=== PATIENT | female | born 1955 | race Caucasian/White ===

== ENCOUNTER → 2017-01-19 | Outpatient (CLI) | payer BC ==
[~2017-01-19] MED LIST: GLC/500 PO; IBUP-1050 PO; LORA-741 PO
--- NOTE | 2017-01-19 13:44 | DIAGNOSTIC IMAGING REPORT ---
R SHOULDER MIN 2 VIEWS CLINICAL HISTORY: 61 years-old Female presenting with RIGHT SHOULDER PAIN. TECHNIQUE: Internal rotation, transscapular Y, and axillary views of the right shoulder were obtained. COMPARISON: None. FINDINGS: Glenohumeral and acromioclavicular joints congruent. No acute fracture or subluxation. Degenerative changes of the glenohumeral and acromioclavicular joints noted. Regional soft tissues within normal limits. Visualized portion of the right hemithorax normal. IMPRESSION: Degenerative changes of the acromioclavicular and glenohumeral joints. No acute osseous injury. Electronically signed by: Freddie Simental M.D. 01/19/2017 1:42 PM Dictated Date/Time: 01/19/2017 1:41 PM
== END | disposition home or self-care (01) ==
LOC: C.RDSM 13:26
PROVIDERS: ATTEND Physician Assistant
DX: M25.511 Pain in right shoulder (principal); M19.011 Primary osteoarthritis, right shoulder

== ENCOUNTER → 2017-05-05 | Outpatient (CLI) | payer OTHER ==
--- NOTE | 2017-05-06 15:08 | MAMMOGRAPHY REPORT ---
BILATERAL DIGITAL SCREENING MAMMOGRAM TOMOSYNTHESIS WITH CAD: 05/05/2017 CLINICAL HISTORY: Routine screening. Patient has no complaints. TECHNIQUE: Breast tomosynthesis in addition to standard 2D mammography was performed. Current study was also evaluated with a Computer Aided Detection (CAD) system. COMPARISON: No prior exams were available for comparison. BREAST COMPOSITION: There are scattered areas of fibroglandular density in both breasts. FINDINGS: There are a few benign-appearing calcifications in the right breast. No suspicious spicul ated or irregular mass, architectural distortion or cluster of suspicious microcalcifications is seen . IMPRESSION: ACR BI-RADS CATEGORY 1: NEGATIVE There is no mammographic evidence of malignancy. Prior outside mammograms are currently being reques rebecca and if obtained they will be reviewed, compared to the current exam to assess for any more subtle changes, and an addendum will be made to this report. Otherwise, a 1 year screening mammogram is re commended. The patient will receive written notification of the results. Approximately 10% of breast cancers are not detected with mammography. A negative mammographic report should not delay biopsy if a clinically suggestive mass is present. Charity Grossman M.D. ay/:05/05/2017 14:38:15 Humanities Division Chair: Keri Gay, [facility] letter sent: Normal 1/2 BI-RADS Code: ACR BI-RADS Category 1: Negative
== END | disposition home or self-care (01) ==
LOC: C.MAMM 13:24
PROVIDERS: ATTEND Family Medicine
DX: Z12.31 Encounter for screening mammogram for malignant neoplasm of breast (principal)

== ENCOUNTER 2017-05-31 12:40 | Emergency (ER) | payer OTHER ==
[~2017-05-31] VITALS: Ht 165.1 cm; Wt 116.1 kg
[2017-05-31 12:54] VITALS: TEMP 36.7; Ht 165.1 cm; Wt 116.1 kg
[2017-05-31] MEDS ORDERED: METHYLPREDNISOLONE 125 MG VIAL IV STA (13:13)
[2017-05-31] MEDS ORDERED: ACETAMINOPHEN 500 MG TAB PO STA (13:13)
[2017-05-31] MEDS ORDERED: ALBUT/IPRATROP 3MG/0.5MG NEB 3 ML VIAL INH STA ×2 (13:13→17:11)
[2017-05-31] MEDS ORDERED: KETOROLAC TROMETHAMINE 30 MG/ML VIAL IV STA (13:13)
[2017-05-31] MEDS ORDERED: SODIUM CHLORIDE 0.9% 1000ML 1,000 ML IV ONE (13:15)
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
--- NOTE | 2017-05-31 14:21 | DIAGNOSTIC IMAGING REPORT ---
CHEST 2 VIEWS ROUTINE CLINICAL HISTORY: cough fever COMPARISON STUDY: 12/21/2015 FINDINGS: Mild interstitial infiltrate left base. Lungs otherwise appear clear. Diaphragms smooth. IMPRESSION: Mild interstitial infiltrate left base. The above report was generated using voice recognition software. It may contain grammatical, syntax or spelling errors. Electronically signed by: Juan M Barnett M.D. 05/31/2017 2:19 PM Dictated Date/Time: 05/31/2017 2:19 PM
[2017-05-31 14:30] LABS: HEMATOCRIT 43.2 % (37-47); HEMOGLOBIN 14.5 g/dL (12.0-16.0); MEAN CELL VOLUME 92.9 fL (80-100); MEAN CORPUSCULAR HEMOGLOBIN 31.2 pg (25-34); MEAN CORPUSCULAR HGB CONC 33.6 g/dl (32-36); MEAN PLATELET VOLUME 9.5 fL (7.4-10.4); PLATELET COUNT 240 K/uL (130-400); RED CELL DISTRIBUTION WIDTH CV 13.5 % (11.5-14.5); RED CELL DISTRIBUTION WIDTH SD 45.5 fL (36.4-46.3); WHITE BLOOD COUNT 8.59 K/uL (4.8-10.8)
[2017-05-31 14:37] LABS: INFLUENZA B ANTIGEN Neg for Influ B (NEG)
[2017-05-31 14:40] LABS: ALBUMIN 3.1 gm/dl (3.4-5.0); CREATININE 0.76 mg/dl (0.60-1.20); POTASSIUM 3.8 mmol/L (3.5-5.1)
[2017-05-31 14:42] LABS: TOTAL PROTEIN 7.6 gm/dl (6.4-8.2)
[2017-05-31 14:55] LABS: BASO % 2.2 %; BASO ABS # 0.19 K/uL (0-0.2); EOS % 5.8 %; IG# 0.02 K/uL (0.00-0.02); LYMPH % 41.7 %; LYMPH ABS # 3.58 K/uL (1.2-3.4); MONO % 6.9 %; MONO ABS # 0.59 K/uL (0.11-0.59); NEUT % 43.2 %; NEUT ABS # 3.71 K/uL (1.4-6.5)
[2017-05-31] MEDS ORDERED: LEVOFLOXACIN 250 MG TAB PO ONE (17:00)
[2017-05-31] MEDS ORDERED: PRED50TA PO (17:14)
[2017-05-31] MEDS ORDERED: VNTHFA/IN INH (17:14)
[2017-05-31] MEDS ORDERED: LEVO-366 PO (17:14)
[2017-05-31 17:56] VITALS: BP 122/83; PULSE 86; O2SAT 94
[2017-05-31] MEDS ORDERED: BENZ100C18 PO (18:19)
[2017-05-31] MEDS ORDERED: GUAI1TAB69 PO (18:19)
== END 2017-05-31 17:57 | disposition home or self-care (01) ==
LOC: C.EDB 12:44 → C.EDC 17:57
DX: J18.9 Pneumonia, unspecified organism (principal); E11.9 Type 2 diabetes mellitus without complications; Z87.891 Personal history of nicotine dependence; Z79.84 Long term (current) use of oral hypoglycemic drugs